=== PATIENT | female | born 1960 | race Caucasian/White ===

== ENCOUNTER 2022-02-15 19:32 | Inpatient (IN) | payer SELFPAY ==
[2022-02-15 19:49] VITALS: BMI 25.7
[2022-02-15] MEDS ORDERED: Senokot S 8.6-50 MG TAB PO PRN (21:08)
[2022-02-15] MEDS ORDERED: Acetaminophen 325 MG TAB PO PRN (21:08)
[2022-02-15] MEDS ORDERED: Ondansetron PF 4 MG/2 ML Vial IVP PRN (21:08)
[2022-02-15] MEDS ORDERED: HYDROcodone/Acetaminophen 5/325 mg Tablet PO PRN (21:08)
[2022-02-16 05:29] LABS: #Eosinphils 0.3 thou/uL (0.0-0.7); #Lymphocytes 2.7 thou/uL (1.20-3.40); #Neutrophils 4.5 thou/uL (1.40-6.50); %Basophils 0.3 % (0.0-1.0); %Eosinophils 3.6 % (0.0-10.0); %Lymphocytes 31.7 % (21.0-51.0); %Monocytes 11.6 % (0.0-10.0); %Neutrophils 52.8 % (42.0-75.0); Hemoglobin 12.4 g/dL (12.0-16.0); Mean Corpuscular HGB CONC 32.2 g/dL (32.0-36.0); Mean Corpuscular Hemoglobin 29.9 pg (27.0-31.0); Mean Corpuscular Volume 92.8 fL (78.0-98.0); Mean Platelet Volume 6.2 fL (7.4-10.4); Platelet Count 336 thou/uL (130-400); RBC Distribution Width 13.1 % (11.5-14.5); Red Blood Cell (RBC) Count 4.16 mill/uL (4.20-5.40); White Blood Cell (WBC) Count 8.5 thou/uL (4.8-10.8)
[2022-02-16 05:59] LABS: Anion Gap 14 mmol/L (10-20); BUN (Urea Nitrogen) 10 mg/dL (9.8-20.1); Calc. Creatinine Clearance 83 mL/min (70-130); Calcium 9.5 mg/dL (7.8-10.44); Carbon Dioxide 29 mmol/L (23-31); Chloride 97 mmol/L (98-107); Glucose 99 mg/dL (80-115); Potassium 3.2 mmol/L (3.5-5.1); Sodium 137 mmol/L (136-145)
[2022-02-16] MEDS: glipiZIDE 10 MG TAB PO SCH (09:33)
[2022-02-16] MEDS: Carvedilol 25 MG TAB PO SCH ×2 (09:33→18:37)
[2022-02-16] MEDS: Aspirin 81 mg Enteric Coated Tablet PO SCH (09:33)
[2022-02-16] MEDS: Lisinopril/Hydrochlorothiazide 20/25 mg Tablet PO SCH (09:33)
[2022-02-16] MEDS ORDERED: Potassium Chloride 20 MEQ TAB PO SCH (18:15)
[2022-02-16] MEDS: Atorvastatin Calcium 40 MG TAB PO SCH (20:53)
[2022-02-17 06:11] LABS: Anion Gap 14 mmol/L (10-20); BUN (Urea Nitrogen) 9 mg/dL (9.8-20.1); Calc. Creatinine Clearance 88 mL/min (70-130); Calcium 9.3 mg/dL (7.8-10.44); Carbon Dioxide 28 mmol/L (23-31); Chloride 98 mmol/L (98-107); Glucose 121 mg/dL (80-115); Potassium 3.7 mmol/L (3.5-5.1); Sodium 136 mmol/L (136-145)
[2022-02-17] MEDS ORDERED: Carvedilol 6.25 MG TAB PO SCH ×2 (09:00→10:00)
[2022-02-17] MEDS: Lisinopril/Hydrochlorothiazide 20/25 mg Tablet PO SCH (09:58)
[2022-02-17] MEDS: Carvedilol 25 MG TAB PO SCH (09:58)
[2022-02-17] MEDS ORDERED: EPINEPHrine 1 MG/10 ML Abboject SYRINGE ONE (10:15)
[2022-02-17] MEDS ORDERED: Midazolam HCl 2 mg/2 ml Vial ONE (10:26)
[2022-02-17] MEDS ORDERED: fentaNYL Citrate/PF 100 MCG/2 ML SYRINGE ONE (10:27)
[2022-02-17] MEDS ORDERED: PROPOFOL 200 MG/20 ML VIAL ONE (10:33)
[2022-02-17] MEDS ORDERED: Rocuronium Bromide 10 MG/ML (10ML VIAL) ONE (10:33)
[2022-02-17] MEDS ORDERED: Dexamethasone 20 MG/5 ML VIAL ONE (10:33)
[2022-02-17] MEDS ORDERED: Ondansetron PF 4 MG/2 ML Vial ONE (10:33)
[2022-02-17] MEDS ORDERED: Glycopyrrolate 0.2 MG/ML 5 ML SYRINGE ONE (10:33)
[2022-02-17] MEDS ORDERED: PHENYLEPHRINE-NS 100 MCG/ML 10 ML SYRINGE ONE (10:33)
[2022-02-17] MEDS ORDERED: ePHEDrine 50 MG/ML VIAL ONE (10:33)
[2022-02-17] MEDS ORDERED: Promethazine HCl 25 MG/ML VIAL IM PRN (11:57)
[2022-02-17] MEDS ORDERED: Ondansetron HCl/PF 4 MG/2 ML Vial IVP PRN (11:57)
[2022-02-17] MEDS ORDERED: Promethazine HCl 25 MG/ML VIAL IVPB PRN (11:57)
[2022-02-17] MEDS ORDERED: SUGAMMADEX SODIUM 200 MG/2 ML VIAL ONE (12:00)
[2022-02-17] MEDS ORDERED: Promethazine HCl 25 MG/ML VIAL ONE (12:09)
[2022-02-17] MEDS: glipiZIDE 10 MG TAB PO SCH (14:39)
[2022-02-17] MEDS: Carvedilol 6.25 MG TAB PO SCH (18:29)
[2022-02-17] MEDS ORDERED: Guaifenesin DM 100-10/5 ML UDCUP PO PRN (20:49)
[2022-02-17] MEDS: Atorvastatin Calcium 40 MG TAB PO SCH (21:51)
[2022-02-18] MEDS: glipiZIDE 10 MG TAB PO SCH (09:17)
[2022-02-18] MEDS: Carvedilol 6.25 MG TAB PO SCH ×2 (09:18→16:57)
[2022-02-18] MEDS: Aspirin 81 mg Enteric Coated Tablet PO SCH (09:20)
[2022-02-18 09:34] LABS: #Lymphocytes 2.3 thou/uL (1.20-3.40); #Monocytes 1.1 thou/uL (0.11-0.59); #Neutrophils 15.1 thou/uL (1.40-6.50); %Eosinophils 0.2 % (0.0-10.0); %Lymphocytes 12.5 % (21.0-51.0); %Monocytes 5.8 % (0.0-10.0); %Neutrophils 81.4 % (42.0-75.0); Hemoglobin 12.3 g/dL (12.0-16.0); Mean Corpuscular HGB CONC 32.1 g/dL (32.0-36.0); Mean Corpuscular Hemoglobin 29.9 pg (27.0-31.0); Mean Corpuscular Volume 93.4 fL (78.0-98.0); Mean Platelet Volume 6.4 fL (7.4-10.4); Platelet Count 388 thou/uL (130-400); RBC Distribution Width 12.9 % (11.5-14.5); Red Blood Cell (RBC) Count 4.11 mill/uL (4.20-5.40); White Blood Cell (WBC) Count 18.6 thou/uL (4.8-10.8)
[2022-02-18 09:47] LABS: Anion Gap 14 mmol/L (10-20); BUN (Urea Nitrogen) 11 mg/dL (9.8-20.1); Calc. Creatinine Clearance 88 mL/min (70-130); Calcium 9.4 mg/dL (7.8-10.44); Carbon Dioxide 27 mmol/L (23-31); Chloride 98 mmol/L (98-107); Glucose 133 mg/dL (80-115); Potassium 3.8 mmol/L (3.5-5.1); Sodium 135 mmol/L (136-145)
[2022-02-18] MEDS: Atorvastatin Calcium 40 MG TAB PO SCH (20:48)
[2022-02-19 05:23] LABS: #Eosinphils 0.1 thou/uL (0.0-0.7); #Lymphocytes 2.6 thou/uL (1.20-3.40); #Monocytes 0.7 thou/uL (0.11-0.59); #Neutrophils 7.4 thou/uL (1.40-6.50); %Basophils 0.1 % (0.0-1.0); %Lymphocytes 24.1 % (21.0-51.0); %Monocytes 6.7 % (0.0-10.0); %Neutrophils 68.1 % (42.0-75.0); Hemoglobin 11.4 g/dL (12.0-16.0); Mean Corpuscular HGB CONC 32.9 g/dL (32.0-36.0); Mean Corpuscular Hemoglobin 30.7 pg (27.0-31.0); Mean Corpuscular Volume 93.4 fL (78.0-98.0); Mean Platelet Volume 5.9 fL (7.4-10.4); Platelet Count 345 thou/uL (130-400); RBC Distribution Width 13.1 % (11.5-14.5); White Blood Cell (WBC) Count 10.9 thou/uL (4.8-10.8)
[2022-02-19] MEDS: glipiZIDE 10 MG TAB PO SCH (10:18)
[2022-02-19] MEDS: Aspirin 81 mg Enteric Coated Tablet PO SCH (10:18)
[2022-02-19] MEDS: Carvedilol 6.25 MG TAB PO SCH (10:18)
[2022-02-19 12:06] VITALS: BP 121/75; TEMP 98.6
[2022-02-24 18:37] LABS: Fungus Stain Final report (.)
== END 2022-02-19 14:31 | disposition home or self-care (01) | DRG 180 ==
LOC: 2NO 19:32 → T4-A 19:37 → NEURO 22:50
PROVIDERS: ADMIT Internal Medicine; ATTEND Family Medicine
PROC: 07D78ZX Extraction of Thorax Lymphatic, Via Natural or Artificial Opening Endoscopic, Diagnostic (ICD-10-PCS; principal; 2022-02-17)
PROC: 0BDB8ZX Extraction of Left Lower Lobe Bronchus, Via Natural or Artificial Opening Endoscopic, Diagnostic (ICD-10-PCS; 2022-02-17)
PROC: 0BD88ZX Extraction of Left Upper Lobe Bronchus, Via Natural or Artificial Opening Endoscopic, Diagnostic (ICD-10-PCS; 2022-02-17)
DX: C34.02 Malignant neoplasm of left main bronchus (principal); J18.8 Other pneumonia, unspecified organism; C79.72 Secondary malignant neoplasm of left adrenal gland; C79.71 Secondary malignant neoplasm of right adrenal gland; R04.2 Hemoptysis; Z20.822 Contact with and (suspected) exposure to COVID-19; E11.9 Type 2 diabetes mellitus without complications; Z96.89 Presence of other specified functional implants; T81.82XA Emphysema (subcutaneous) resulting from a procedure, initial encounter; Y84.8 Other medical procedures as the cause of abnormal reaction of the patient, or of later complication, without mention of misadventure at the time of the procedure; Z79.899 Other long term (current) drug therapy; Z79.82 Long term (current) use of aspirin; Z79.84 Long term (current) use of oral hypoglycemic drugs; Z85.3 Personal history of malignant neoplasm of breast; Z90.11 Acquired absence of right breast and nipple; Z87.891 Personal history of nicotine dependence; Z80.0 Family history of malignant neoplasm of digestive organs; Z83.6 Family history of other diseases of the respiratory system
CPT/HCPCS: 36415; 36416; 71045; 80048; 85025; 87070; 87102; 87205; 87206; 88112; 88173; 88305; J0171; J1100; J2250; J2405; J2550; J2704; J3490; U0003; U0005

== ENCOUNTER 2022-03-08 11:00 | Outpatient (CLI) | payer OTHER | END 2022-03-08 11:01 | disposition home or self-care (01) | LOC: PET 11:00 | PROVIDERS: ATTEND Internal Medicine Hematology & Oncology | DX: C34.12 Malignant neoplasm of upper lobe, left bronchus or lung (principal); C79.51 Secondary malignant neoplasm of bone; E27.8 Other specified disorders of adrenal gland | CPT/HCPCS: 78815; A9552 ==

== ENCOUNTER 2022-03-08 12:44 | Inpatient (IN) | payer SELFPAY ==
[~2022-03-08 12:44] MED LIST: Iopamidol-370 76% 500 ML 1 ML ONE
[2022-03-08 15:29] LABS: #Basophils 0.1 thou/uL (0.0-0.2); #Eosinphils 0.3 thou/uL (0.0-0.7); #Lymphocytes 2.6 thou/uL (1.20-3.40); #Neutrophils 7.4 thou/uL (1.40-6.50); %Basophils 0.7 % (0.0-1.0); %Lymphocytes 22.9 % (21.0-51.0); %Monocytes 8.7 % (0.0-10.0); %Neutrophils 64.7 % (42.0-75.0); Mean Corpuscular HGB CONC 33.6 g/dL (32.0-36.0); Mean Corpuscular Hemoglobin 30.5 pg (27.0-31.0); Mean Corpuscular Volume 90.9 fL (78.0-98.0); Mean Platelet Volume 5.7 fL (7.4-10.4); Platelet Count 463 thou/uL (130-400); RBC Distribution Width 13.2 % (11.5-14.5); Red Blood Cell (RBC) Count 3.62 mill/uL (4.20-5.40); White Blood Cell (WBC) Count 11.4 thou/uL (4.8-10.8)
[2022-03-08 15:39] LABS: INR-International Normal Ratio 1.1; Prothrombin Time 14.7 sec (12.0-14.7)
[2022-03-08 15:40] LABS: PTT 37.5 sec (22.9-36.1)
[2022-03-08 15:55] LABS: ALT (SGPT) 23 U/L (8-55); AST (SGOT) 21 U/L (5-34); Albumin 3.4 g/dL (3.4-4.8); Alkaline Phosphatase 137 U/L (40-110); Anion Gap 16 mmol/L (10-20); BUN (Urea Nitrogen) 9 mg/dL (9.8-20.1); Bilirubin, Total 0.7 mg/dL (0.2-1.2); Calc. Creatinine Clearance 0 mL/min (70-130); Calcium 9.5 mg/dL (7.8-10.44); Carbon Dioxide 27 mmol/L (23-31); Chloride 101 mmol/L (98-107); Globulin 3.8 g/dL (2.4-3.5); Glucose 77 mg/dL (80-115); Potassium 3.8 mmol/L (3.5-5.1); Protein, Total 7.2 g/dL (5.8-8.1); Sodium 140 mmol/L (136-145)
[2022-03-08] MEDS ORDERED: Heparin 10,000 UNITS/ 10 ML VIAL ONE (20:25)
[2022-03-08] MEDS ORDERED: Heparin 25,000 units/D5W 500 ML ONE (20:25)
[2022-03-08] MEDS ORDERED: Acetaminophen 325 MG TAB PO PRN (21:00)
[2022-03-08] MEDS ORDERED: Ondansetron PF 4 MG/2 ML Vial IVP PRN (21:00)
[2022-03-08] MEDS ORDERED: Guaifenesin DM 100-10/5 ML UDCUP PO PRN (21:00)
[2022-03-08] MEDS ORDERED: Benzonatate 100 MG CAP PO PRN (21:05)
[2022-03-08] MEDS ORDERED: Morphine 2 MG/ML VIAL SLOW IVP PRN (21:05)
[2022-03-08] MEDS ORDERED: Melatonin 3 MG TAB PO PRN (21:05)
[2022-03-08] MEDS ORDERED: Dextrose 5% in Water 1,000 ML IV PRN (21:11)
[2022-03-08] MEDS ORDERED: HumaLOG 300 UNITS/3 ML VIAL SC PRN ×2 (21:11)
[2022-03-08] MEDS ORDERED: Dextrose 50% Abboject 50 ML SYRINGE SLOW IVP PRN (21:11)
[2022-03-08] MEDS ORDERED: Heparin 10,000 UNITS/ 10 ML VIAL SLOW IVP SCH (21:15)
[2022-03-08] MEDS ORDERED: Heparin 25,000 units/D5W 500 ML IVPB SCH (21:15)
[2022-03-08 21:36] LABS: Hemoglobin 10.7 g/dL (12.0-16.0); Platelet Count 462 thou/uL (130-400)
[2022-03-08] MEDS ORDERED: Pantoprazole 40 MG VIAL IVP SCH (22:00)
[2022-03-08] MEDS ORDERED: cefTRIAXone\\ROCEPHIN 2 GM VIAL ONE (22:22)
[2022-03-08] MEDS ORDERED: Pantoprazole 40 MG VIAL ONE (22:24)
[2022-03-08] MEDS: Sodium Chloride 0.9% 1,000 ML IV SCH (22:38)
[2022-03-08] MEDS: cefTRIAXone\\ROCEPHIN 2 GM in Sodium Chloride 0.9% 100 ML IVPB SCH (22:41)
[2022-03-08] MEDS ORDERED: Azithromycin 500 MG in Sodium Chloride 0.9% 250 ML 250 ML IVPB SCH (23:00)
[2022-03-09 01:28] VITALS: BMI 26.0
[2022-03-09] MEDS ORDERED: Azithromycin 500 MG in Sodium Chloride 0.9% 250 ML 250 ML IVPB SCH (02:00)
[2022-03-09 02:03] LABS: SARS-CoV-2 NAA Rapid Test Not Detected (NotDetected)
[2022-03-09 04:10] LABS: PTT Greater than 250.0 sec (22.9-36.1)
[2022-03-09 06:24] LABS: #Basophils 0.1 thou/uL (0.0-0.2); #Eosinphils 0.4 thou/uL (0.0-0.7); #Lymphocytes 3.1 thou/uL (1.20-3.40); #Monocytes 1.2 thou/uL (0.11-0.59); #Neutrophils 6.2 thou/uL (1.40-6.50); %Basophils 0.5 % (0.0-1.0); %Eosinophils 3.5 % (0.0-10.0); %Lymphocytes 28.2 % (21.0-51.0); %Monocytes 10.9 % (0.0-10.0); Mean Corpuscular HGB CONC 32.3 g/dL (32.0-36.0); Mean Corpuscular Hemoglobin 29.9 pg (27.0-31.0); Mean Corpuscular Volume 92.6 fL (78.0-98.0); Mean Platelet Volume 5.8 fL (7.4-10.4); Platelet Count 451 thou/uL (130-400); RBC Distribution Width 13.1 % (11.5-14.5); Red Blood Cell (RBC) Count 3.33 mill/uL (4.20-5.40); White Blood Cell (WBC) Count 10.9 thou/uL (4.8-10.8)
[2022-03-09 06:33] LABS: Hemoglobin A1c 6.3 % (4.0-6.0)
[2022-03-09 06:37] LABS: PTT 139.2 sec (22.9-36.1)
[2022-03-09 06:44] LABS: ALT (SGPT) 19 U/L (8-55); AST (SGOT) 21 U/L (5-34); Albumin 2.8 g/dL (3.4-4.8); Alkaline Phosphatase 115 U/L (40-110); Anion Gap 12 mmol/L (10-20); BUN (Urea Nitrogen) 8 mg/dL (9.8-20.1); Bilirubin, Total 0.4 mg/dL (0.2-1.2); Calc. Creatinine Clearance 109 mL/min (70-130); Calcium 8.4 mg/dL (7.8-10.44); Carbon Dioxide 25 mmol/L (23-31); Chloride 106 mmol/L (98-107); Globulin 3.2 g/dL (2.4-3.5); Glucose 72 mg/dL (80-115); Potassium 3.1 mmol/L (3.5-5.1); Sodium 140 mmol/L (136-145)
[2022-03-09] MEDS ORDERED: Electrolyte Replacement Protocol 1 EACH FS SCH (09:00)
[2022-03-09] MEDS: Pantoprazole 40 MG VIAL IVP SCH (09:32)
[2022-03-09] MEDS ORDERED: Potassium Chloride 20 MEQ TAB PO SCH (10:00)
[2022-03-09 10:29] LABS: Magnesium 1.9 mg/dL (1.6-2.6)
[2022-03-09] MEDS ORDERED: Magnesium 2 GM/50 ML(in water) 2 GM in Premix Bag 1 BAG IVPB SCH (13:00)
[2022-03-09] MEDS: Sodium Chloride 0.9% 1,000 ML IV SCH (18:21)
[2022-03-09] MEDS ORDERED: Enoxaparin Sodium 80 MG/0.8 ML SYRINGE SC SCH (21:00)
[2022-03-09] MEDS: cefTRIAXone\\ROCEPHIN 2 GM in Sodium Chloride 0.9% 100 ML IVPB SCH (21:55)
[2022-03-10 04:08] LABS: Mean Corpuscular HGB CONC 32.5 g/dL (32.0-36.0); Mean Corpuscular Hemoglobin 30.2 pg (27.0-31.0); Mean Corpuscular Volume 92.9 fL (78.0-98.0); Mean Platelet Volume 5.9 fL (7.4-10.4); Platelet Count 435 thou/uL (130-400); RBC Distribution Width 13.1 % (11.5-14.5); Red Blood Cell (RBC) Count 3.32 mill/uL (4.20-5.40)
[2022-03-10 04:21] LABS: Anion Gap 15 mmol/L (10-20); BUN (Urea Nitrogen) 5 mg/dL (9.8-20.1); Calc. Creatinine Clearance 112 mL/min (70-130); Calcium 8.6 mg/dL (7.8-10.44); Carbon Dioxide 22 mmol/L (23-31); Chloride 105 mmol/L (98-107); Glucose 103 mg/dL (80-115); Potassium 3.6 mmol/L (3.5-5.1); Sodium 138 mmol/L (136-145)
[2022-03-10] MEDS ORDERED: Carvedilol 6.25 MG TAB PO SCH (05:45)
[2022-03-10] MEDS ORDERED: fentaNYL Citrate/PF 100 MCG/2 ML SYRINGE ONE (06:50)
[2022-03-10] MEDS ORDERED: Bupivacaine PF 0.5% 30 ML VIAL ONE (07:22)
[2022-03-10] MEDS ORDERED: EPINEPHrine 1 MG/ML AMP ONE (07:22)
[2022-03-10] MEDS ORDERED: Lidocaine 1% PF 5 ML VIAL ONE (07:53)
[2022-03-10] MEDS ORDERED: PROPOFOL 200 MG/20 ML VIAL ONE (07:53)
[2022-03-10] MEDS ORDERED: Ondansetron PF 4 MG/2 ML Vial ONE (07:53)
[2022-03-10] MEDS ORDERED: Glycopyrrolate 0.2 MG/ML 5 ML SYRINGE ONE (07:53)
[2022-03-10] MEDS ORDERED: Rocuronium Bromide 10 MG/ML (10ML VIAL) ONE (07:53)
[2022-03-10] MEDS ORDERED: Fentanyl 100 MCG/2 ML VIAL SLOW IVP PRN (10:49)
[2022-03-10] MEDS: Pantoprazole 40 MG VIAL IVP SCH (12:57)
[2022-03-10] MEDS: HYDROcodone/Acetaminophen 5/325 mg Tablet PO PRN ×2 (16:09→22:43)
[2022-03-10] MEDS: Morphine 2 MG/ML VIAL SLOW IVP PRN (19:12)
[2022-03-10] MEDS: cefTRIAXone\\ROCEPHIN 2 GM in Sodium Chloride 0.9% 100 ML IVPB SCH (21:57)
[2022-03-10] MEDS: Enoxaparin Sodium 30 MG/0.3 ML SYRINGE SC SCH (21:57)
[2022-03-11] MEDS: HYDROcodone/Acetaminophen 5/325 mg Tablet PO PRN ×3 (09:17→20:31)
[2022-03-11] MEDS: Enoxaparin Sodium 30 MG/0.3 ML SYRINGE SC SCH ×2 (09:18→20:29)
[2022-03-11] MEDS: Pantoprazole 40 MG VIAL IVP SCH (09:18)
[2022-03-11] MEDS ORDERED: Docusate 100 MG CAP PO PRN (11:53)
[2022-03-11] MEDS ORDERED: Polyethylene Glycol 3350 17 GM Packet PO PRN (11:53)
[2022-03-11] MEDS: Morphine 2 MG/ML VIAL SLOW IVP PRN (18:10)
[2022-03-11] MEDS: cefTRIAXone\\ROCEPHIN 2 GM in Sodium Chloride 0.9% 100 ML IVPB SCH (20:29)
[2022-03-12 05:02] LABS: Anion Gap 14 mmol/L (10-20); BUN (Urea Nitrogen) 9 mg/dL (9.8-20.1); Calc. Creatinine Clearance 112 mL/min (70-130); Calcium 8.5 mg/dL (7.8-10.44); Carbon Dioxide 24 mmol/L (23-31); Chloride 103 mmol/L (98-107); Glucose 111 mg/dL (80-115); Sodium 138 mmol/L (136-145)
[2022-03-12 05:11] LABS: Hemoglobin 9.5 g/dL (12.0-16.0); Mean Corpuscular HGB CONC 32.9 g/dL (32.0-36.0); Mean Corpuscular Hemoglobin 30.4 pg (27.0-31.0); Mean Corpuscular Volume 92.5 fL (78.0-98.0); Mean Platelet Volume 6.1 fL (7.4-10.4); Platelet Count 495 thou/uL (130-400); RBC Distribution Width 13.2 % (11.5-14.5); Red Blood Cell (RBC) Count 3.12 mill/uL (4.20-5.40); White Blood Cell (WBC) Count 12.4 thou/uL (4.8-10.8)
[2022-03-12] MEDS ORDERED: Potassium Chloride 20 MEQ TAB PO SCH ×2 (09:00→12:00)
[2022-03-12] MEDS ORDERED: Enoxaparin Sodium 80 MG/0.8 ML SYRINGE SC SCH (09:00)
[2022-03-12] MEDS: Potassium Chloride 20 MEQ in Premix Bag 1 BAG IVPB SCH ×2 (10:19→13:45)
[2022-03-12] MEDS: Pantoprazole 40 MG VIAL IVP SCH (10:19)
[2022-03-12 16:08] VITALS: BP 130/82; TEMP 98
== END 2022-03-12 17:30 | disposition home or self-care (01) | DRG 166 ==
LOC: ERS 12:44 → ERHOLD 20:38 → IMCU/EMU 03-09 01:10 → 2NO 03-10 17:50
PROVIDERS: ADMIT Internal Medicine; ATTEND Internal Medicine
PROC: 07B74ZX Excision of Thorax Lymphatic, Percutaneous Endoscopic Approach, Diagnostic (ICD-10-PCS; principal; 2022-03-11)
PROC: 07B Lymphatic and Hemic Systems, Excision (ICD-10-PCS; 2022-03-11)
DX: C34.92 Malignant neoplasm of unspecified part of left bronchus or lung (principal); I26.99 Other pulmonary embolism without acute cor pulmonale; J18.9 Pneumonia, unspecified organism; C79.51 Secondary malignant neoplasm of bone; C79.70 Secondary malignant neoplasm of unspecified adrenal gland; J98.11 Atelectasis; C78.1 Secondary malignant neoplasm of mediastinum; I31.3 Pericardial effusion (noninflammatory); J90 Pleural effusion, not elsewhere classified; E78.5 Hyperlipidemia, unspecified; K21.9 Gastro-esophageal reflux disease without esophagitis; I10 Essential (primary) hypertension; J98.2 Interstitial emphysema; R42 Dizziness and giddiness; E11.9 Type 2 diabetes mellitus without complications; Z20.822 Contact with and (suspected) exposure to COVID-19; Z79.82 Long term (current) use of aspirin; Z79.84 Long term (current) use of oral hypoglycemic drugs; Z79.899 Other long term (current) drug therapy; Z98.51 Tubal ligation status; Z90.721 Acquired absence of ovaries, unilateral; Z90.11 Acquired absence of right breast and nipple; Z90.49 Acquired absence of other specified parts of digestive tract; Z98.890 Other specified postprocedural states; Z87.891 Personal history of nicotine dependence; Z80.0 Family history of malignant neoplasm of digestive organs; Z84.89 Family history of other specified conditions; Z85.3 Personal history of malignant neoplasm of breast; Z92.21 Personal history of antineoplastic chemotherapy
CPT/HCPCS: 36415; 36416; 71045; 71275; 80048; 80053; 82306; 82533; 83036; 83735; 83880; 84443; 84484; 85025; 85027; 85610; 85730; 86850; 86900; 86901; 88305; 88331; 88334; 88341; 88342; 93005; 93306; C1776; C9113; J0171; J0456; J0696; J1644; J1650; J1815; J2270; J2405; J2704; J3475; J3480; J3490; J7050; Q9967; S0020; U0002

== ENCOUNTER 2022-04-09 16:43 | Emergency (ER) | payer SELFPAY ==
[2022-04-09] MEDS ORDERED: Morphine 4 MG/ML VIAL ONE (18:18)
[2022-04-09] MEDS ORDERED: Ondansetron PF 4 MG/2 ML Vial ONE (18:18)
[2022-04-09 18:48] LABS: #Basophils 0.1 thou/uL (0.0-0.2); #Eosinphils 0.2 thou/uL (0.0-0.7); #Lymphocytes 2.6 thou/uL (1.20-3.40); #Monocytes 1.3 thou/uL (0.11-0.59); #Neutrophils 7.5 thou/uL (1.40-6.50); %Basophils 0.5 % (0.0-1.0); %Eosinophils 1.5 % (0.0-10.0); %Lymphocytes 22.7 % (21.0-51.0); %Monocytes 10.9 % (0.0-10.0); %Neutrophils 64.4 % (42.0-75.0); Hemoglobin 9.3 g/dL (12.0-16.0); Mean Corpuscular HGB CONC 31.4 g/dL (32.0-36.0); Mean Corpuscular Hemoglobin 28.8 pg (27.0-31.0); Mean Platelet Volume 6.2 fL (7.4-10.4); Platelet Count 574 thou/uL (130-400); Red Blood Cell (RBC) Count 3.22 mill/uL (4.20-5.40); White Blood Cell (WBC) Count 11.6 thou/uL (4.8-10.8)
[2022-04-09 19:02] LABS: Calcium 9.3 mg/dL (7.8-10.44); Chloride 101 mmol/L (98-107); Potassium 3.9 mmol/L (3.5-5.1); Sodium 136 mmol/L (136-145)
[2022-04-09 19:20] LABS: ALT (SGPT) 24 U/L (8-55); AST (SGOT) 27 U/L (5-34); Albumin 3.2 g/dL (3.4-4.8); Alkaline Phosphatase 164 U/L (40-110); Anion Gap 19 mmol/L (10-20); BUN (Urea Nitrogen) 10 mg/dL (9.8-20.1); Bilirubin, Total 0.5 mg/dL (0.2-1.2); Calc. Creatinine Clearance 0 mL/min (70-130); Carbon Dioxide 20 mmol/L (23-31); Estimated GFR 99; Globulin 4.2 g/dL (2.4-3.5); Glucose 127 mg/dL (80-115); Lipase 21 U/L (8-78); Protein, Total 7.4 g/dL (5.8-8.1)
[2022-04-09 20:00] LABS: Bacteria/HPF 2+ HPF (None Seen); Bilirubin Negative (Negative); Blood, Urine 3+ (Negative); Clarity Turbid (Clear); Glucose, Urine (Dipstick) Normal (Negative); Ketone, Urine Negative (Negative); Leukocyte 25 Leu/uL (Negative); Nitrite Negative (Negative); Protein, Urine (Dipstick) 50 mg/dL (Neg-Trace); RBC/HPF 21-50 HPF (0-3); Specific Gravity, Urine 1.007 (1.002-1.036); Squamous Epithelial 0-3 HPF (0-3); Urobilinogen Normal mg/dL (Less than 2); pH, Urine 6.5 (5.0-9.0)
== END 2022-04-09 21:43 | disposition home or self-care (01) ==
LOC: ERS 17:18
DX: N12 Tubulo-interstitial nephritis, not specified as acute or chronic (principal); K63.89 Other specified diseases of intestine; C79.51 Secondary malignant neoplasm of bone; C79.89 Secondary malignant neoplasm of other specified sites; I10 Essential (primary) hypertension; E11.9 Type 2 diabetes mellitus without complications; E78.5 Hyperlipidemia, unspecified; K21.9 Gastro-esophageal reflux disease without esophagitis; Z85.118 Personal history of other malignant neoplasm of bronchus and lung
CPT/HCPCS: 36415; 74177; 80053; 81003; 81015; 83690; 85025; 93005; 94760; 96361; 96374; 96375; J2270; J2405; Q9967

== ENCOUNTER 2022-04-17 15:04 | Inpatient (IN) | payer SELFPAY, OTHER ==
[2022-04-17 15:34] LABS: #Basophils 0.1 thou/uL (0.0-0.2); #Eosinphils 0.1 thou/uL (0.0-0.7); #Lymphocytes 2.9 thou/uL (1.20-3.40); #Monocytes 0.9 thou/uL (0.11-0.59); #Neutrophils 10.7 thou/uL (1.40-6.50); %Basophils 0.7 % (0.0-1.0); %Eosinophils 0.8 % (0.0-10.0); %Lymphocytes 19.5 % (21.0-51.0); %Monocytes 6.4 % (0.0-10.0); %Neutrophils 72.8 % (42.0-75.0); Hemoglobin 10.2 g/dL (12.0-16.0); Mean Corpuscular HGB CONC 32.9 g/dL (32.0-36.0); Mean Corpuscular Hemoglobin 29.4 pg (27.0-31.0); Mean Corpuscular Volume 89.1 fL (78.0-98.0); Platelet Count 616 thou/uL (130-400); RBC Distribution Width 14.3 % (11.5-14.5); Red Blood Cell (RBC) Count 3.47 mill/uL (4.20-5.40); White Blood Cell (WBC) Count 14.7 thou/uL (4.8-10.8)
[2022-04-17 15:46] LABS: INR-International Normal Ratio 1.6
[2022-04-17 15:47] LABS: PTT 62.9 sec (22.9-36.1)
[2022-04-17 15:56] LABS: ALT (SGPT) 24 U/L (8-55); AST (SGOT) 30 U/L (5-34); Albumin 3.5 g/dL (3.4-4.8); Alkaline Phosphatase 188 U/L (40-110); Anion Gap 20 mmol/L (10-20); BUN (Urea Nitrogen) 12 mg/dL (9.8-20.1); Bilirubin, Total 0.4 mg/dL (0.2-1.2); Calc. Creatinine Clearance 0 mL/min (70-130); Calcium 9.9 mg/dL (7.8-10.44); Carbon Dioxide 22 mmol/L (23-31); Chloride 94 mmol/L (98-107); Estimated GFR 69; Globulin 5.2 g/dL (2.4-3.5); Glucose 167 mg/dL (80-115); Potassium 4.4 mmol/L (3.5-5.1); Protein, Total 8.7 g/dL (5.8-8.1); Sodium 132 mmol/L (136-145)
[2022-04-17] MEDS ORDERED: Ondansetron PF 4 MG/2 ML Vial ONE (16:08)
[2022-04-17] MEDS ORDERED: Acetaminophen 325 MG TAB PO PRN (18:27)
[2022-04-17] MEDS ORDERED: Guaifenesin DM 100-10/5 ML UDCUP PO PRN (18:27)
[2022-04-17] MEDS ORDERED: Ondansetron ODT 4 MG TAB PO PRN (18:27)
[2022-04-17] MEDS ORDERED: Ondansetron PF 4 MG/2 ML Vial IVP PRN (18:27)
[2022-04-17] MEDS ORDERED: Bisacodyl 10 MG SUPP PR PRN (18:27)
[2022-04-17] MEDS ORDERED: Bisacodyl 5 MG TAB PO PRN (18:27)
[2022-04-17] MEDS ORDERED: Acetaminophen 650 MG Suppository PR PRN (18:27)
[2022-04-17] MEDS ORDERED: HumaLOG 300 UNITS/3 ML VIAL SC PRN ×2 (19:46)
[2022-04-17] MEDS ORDERED: Dextrose 5% in Water 1,000 ML IV PRN (19:46)
[2022-04-17] MEDS ORDERED: Dextrose 50% Abboject 50 ML SYRINGE SLOW IVP PRN (19:46)
[2022-04-17] MEDS ORDERED: hydrALAZINE 20 MG/ML VIAL SLOW IVP PRN (19:48)
[2022-04-17] MEDS: Sodium Chloride 0.9% 1,000 ML IV SCH (21:06)
[2022-04-17] MEDS: Morphine 2 MG/ML VIAL SLOW IVP PRN (21:07)
[2022-04-17] MEDS: Pantoprazole 40 MG VIAL IVP SCH (21:07)
[2022-04-18 02:38] LABS: Bilirubin Negative (Negative); Blood, Urine 3+ (Negative); Clarity Clear (Clear); Glucose, Urine (Dipstick) Normal (Negative); Ketone, Urine Negative (Negative); Leukocyte Negative Leu/uL (Negative); Nitrite Negative (Negative); Protein, Urine (Dipstick) Negative (Neg-Trace); Specific Gravity, Urine 1.035 (1.002-1.036); Urobilinogen Normal mg/dL (Less than 2)
[2022-04-18 02:48] LABS: Bacteria/HPF 3+ HPF (None Seen); Squamous Epithelial 0-3 HPF (0-3); Urine Culture Reflex Yes Yes; WBC/HPF 0-3 HPF (0-3)
[2022-04-18 04:43] LABS: #Basophils 0.1 thou/uL (0.0-0.2); #Eosinphils 0.1 thou/uL (0.0-0.7); #Lymphocytes 2.9 thou/uL (1.20-3.40); #Monocytes 1.6 thou/uL (0.11-0.59); #Neutrophils 8.2 thou/uL (1.40-6.50); %Basophils 0.5 % (0.0-1.0); %Eosinophils 0.9 % (0.0-10.0); %Lymphocytes 22.6 % (21.0-51.0); Hemoglobin 9.6 g/dL (12.0-16.0); Mean Corpuscular HGB CONC 32.1 g/dL (32.0-36.0); Mean Corpuscular Hemoglobin 29.1 pg (27.0-31.0); Mean Corpuscular Volume 90.9 fL (78.0-98.0); Platelet Count 527 thou/uL (130-400); RBC Distribution Width 14.2 % (11.5-14.5); Red Blood Cell (RBC) Count 3.29 mill/uL (4.20-5.40); White Blood Cell (WBC) Count 12.9 thou/uL (4.8-10.8)
[2022-04-18 04:59] LABS: Hemoglobin A1c 5.7 % (4.0-6.0)
[2022-04-18 05:06] LABS: ALT (SGPT) 19 U/L (8-55); AST (SGOT) 28 U/L (5-34); Albumin 3.2 g/dL (3.4-4.8); Alkaline Phosphatase 162 U/L (40-110); Anion Gap 19 mmol/L (10-20); BUN (Urea Nitrogen) 10 mg/dL (9.8-20.1); Bilirubin, Total 0.4 mg/dL (0.2-1.2); Calc. Creatinine Clearance 88 mL/min (70-130); Calcium 9.5 mg/dL (7.8-10.44); Carbon Dioxide 20 mmol/L (23-31); Cardiac Risk 3.5 (Less than 4.5); Chloride 98 mmol/L (98-107); Cholesterol 141 mg/dl (< 200 Desired); Estimated GFR 100; Globulin 4.4 g/dL (2.4-3.5); Glucose 82 mg/dL (80-115); HDL Cholesterol 40 mg/dL (>60 Neg Risk); LDL Cholesterol, Calculated 77 mg/dL; Potassium 4.2 mmol/L (3.5-5.1); Protein, Total 7.6 g/dL (5.8-8.1); Sodium 133 mmol/L (136-145); Triglycerides 119 mg/dL (Less than 150)
[2022-04-18] MEDS: HYDROcodone/Acetaminophen 5/325 mg Tablet PO PRN ×2 (09:17→14:14)
[2022-04-18] MEDS ORDERED: ONDANSETRON HCL 4 MG PO PRN (13:10)
[2022-04-18] MEDS: Sodium Chloride 0.9% 1,000 ML IV SCH (14:13)
[2022-04-18] MEDS: Apixaban 2.5 MG TAB PO SCH (21:54)
[2022-04-18] MEDS: Atorvastatin Calcium 40 MG TAB PO SCH (21:54)
[2022-04-18] MEDS: Pantoprazole 40 MG VIAL IVP SCH (21:54)
[2022-04-18] MEDS: Sulfameth/Trimethoprim SS 400-80MG TAB PO SCH (21:54)
[2022-04-19] MEDS: Morphine 2 MG/ML VIAL SLOW IVP PRN ×3 (00:24→21:04)
[2022-04-19] MEDS: Sodium Chloride 0.9% 1,000 ML IV SCH (09:27)
[2022-04-19] MEDS: Ascorbic Acid 500 mg Chewable Tablet PO SCH (09:28)
[2022-04-19] MEDS: Apixaban 2.5 MG TAB PO SCH ×2 (09:28→20:55)
[2022-04-19] MEDS: Zinc Sulfate 220 MG CAP PO SCH (09:29)
[2022-04-19] MEDS: Sulfameth/Trimethoprim SS 400-80MG TAB PO SCH ×2 (09:29→20:55)
[2022-04-19] MEDS: Cholecalciferol 1,000 UNITS (25 MCG) TAB PO SCH (09:29)
[2022-04-19] MEDS: Atorvastatin Calcium 40 MG TAB PO SCH (20:54)
[2022-04-20] MEDS: Morphine 2 MG/ML VIAL SLOW IVP PRN ×3 (02:01→16:32)
[2022-04-20] MEDS: Sodium Chloride 0.9% 1,000 ML IV SCH ×2 (02:05→16:39)
[2022-04-20] MEDS: Ascorbic Acid 500 mg Chewable Tablet PO SCH (09:25)
[2022-04-20] MEDS: Sulfameth/Trimethoprim SS 400-80MG TAB PO SCH ×2 (09:25→20:48)
[2022-04-20] MEDS: Zinc Sulfate 220 MG CAP PO SCH (09:25)
[2022-04-20] MEDS: Apixaban 2.5 MG TAB PO SCH ×2 (09:25→20:48)
[2022-04-20] MEDS: Cholecalciferol 1,000 UNITS (25 MCG) TAB PO SCH (09:25)
[2022-04-20 09:52] VITALS: BMI 23.2
[2022-04-20] MEDS: HYDROcodone/Acetaminophen 5/325 mg Tablet PO PRN (20:48)
[2022-04-20] MEDS: Atorvastatin Calcium 40 MG TAB PO SCH (20:48)
[2022-04-20] MEDS ORDERED: Mirtazapine 30 MG TAB PO SCH (21:00)
[2022-04-21 07:32] LABS: #Basophils 0.1 thou/uL (0.0-0.2); #Eosinphils 0.2 thou/uL (0.0-0.7); #Lymphocytes 2.5 thou/uL (1.20-3.40); #Monocytes 1.4 thou/uL (0.11-0.59); #Neutrophils 8.1 thou/uL (1.40-6.50); %Basophils 0.4 % (0.0-1.0); %Eosinophils 1.2 % (0.0-10.0); %Lymphocytes 20.8 % (21.0-51.0); %Monocytes 11.1 % (0.0-10.0); %Neutrophils 66.4 % (42.0-75.0); Hemoglobin 7.9 g/dL (12.0-16.0); Mean Corpuscular HGB CONC 31.6 g/dL (32.0-36.0); Mean Corpuscular Hemoglobin 27.6 pg (27.0-31.0); Mean Corpuscular Volume 87.5 fL (78.0-98.0); Mean Platelet Volume 5.7 fL (7.4-10.4); Platelet Count 550 thou/uL (130-400); RBC Distribution Width 14.5 % (11.5-14.5); Red Blood Cell (RBC) Count 2.86 mill/uL (4.20-5.40); White Blood Cell (WBC) Count 12.2 thou/uL (4.8-10.8)
[2022-04-21 07:46] LABS: Anion Gap 15 mmol/L (10-20); BUN (Urea Nitrogen) 8 mg/dL (9.8-20.1); Calc. Creatinine Clearance 92 mL/min (70-130); Calcium 8.9 mg/dL (7.8-10.44); Carbon Dioxide 23 mmol/L (23-31); Chloride 101 mmol/L (98-107); Estimated GFR 100; Glucose 112 mg/dL (80-115); Potassium 3.9 mmol/L (3.5-5.1); Sodium 135 mmol/L (136-145)
[2022-04-21] MEDS: Ascorbic Acid 500 mg Chewable Tablet PO SCH (09:24)
[2022-04-21] MEDS: Apixaban 2.5 MG TAB PO SCH (09:25)
[2022-04-21] MEDS: Zinc Sulfate 220 MG CAP PO SCH (09:25)
[2022-04-21] MEDS: Cholecalciferol 1,000 UNITS (25 MCG) TAB PO SCH (09:25)
[2022-04-21] MEDS: Sulfameth/Trimethoprim SS 400-80MG TAB PO SCH (09:25)
[2022-04-21 12:53] VITALS: BP 123/67; TEMP 98.2
== END 2022-04-21 01:25 | disposition home or self-care (01) | DRG 180 ==
LOC: ERS 15:04 → 2NO 18:37
PROVIDERS: ADMIT Internal Medicine; ATTEND Internal Medicine
PROC: 8E0ZXY6 Isolation (ICD-10-PCS; principal; 2022-04-17)
DX: C34.02 Malignant neoplasm of left main bronchus (principal); U07.1 COVID-19; D68.32 Hemorrhagic disorder due to extrinsic circulating anticoagulants; C79.51 Secondary malignant neoplasm of bone; C79.72 Secondary malignant neoplasm of left adrenal gland; C79.71 Secondary malignant neoplasm of right adrenal gland; I27.82 Chronic pulmonary embolism; I10 Essential (primary) hypertension; E11.9 Type 2 diabetes mellitus without complications; E78.00 Pure hypercholesterolemia, unspecified; T45.515A Adverse effect of anticoagulants, initial encounter; R04.0 Epistaxis; Z85.3 Personal history of malignant neoplasm of breast; Z90.11 Acquired absence of right breast and nipple; Z79.899 Other long term (current) drug therapy; Z79.01 Long term (current) use of anticoagulants; Z80.0 Family history of malignant neoplasm of digestive organs; Z83.6 Family history of other diseases of the respiratory system; Z87.891 Personal history of nicotine dependence; Z79.84 Long term (current) use of oral hypoglycemic drugs
CPT/HCPCS: 36415; 36416; 71045; 71275; 80048; 80053; 80061; 81001; 83036; 85025; 85379; 85610; 85730; 86140; 86850; 86900; 86901; 87086; 93005; 93970; 96361; 96374; C9113; J2270; J2405; J7050; Q9967; U0003; U0005

== ENCOUNTER 2022-05-01 12:01 | Inpatient (IN) | payer MEDICAID ==
[2022-05-01] MEDS ORDERED: Ondansetron PF 4 MG/2 ML Vial ONE ×2 (12:54→15:52)
[2022-05-01 12:57] LABS: #Basophils 0.1 thou/uL (0.0-0.2); #Eosinphils 0.1 thou/uL (0.0-0.7); #Lymphocytes 2.9 thou/uL (1.20-3.40); #Monocytes 0.2 thou/uL (0.11-0.59); #Neutrophils 6.3 thou/uL (1.40-6.50); %Basophils 0.5 % (0.0-1.0); %Lymphocytes 30.3 % (21.0-51.0); %Monocytes 1.9 % (0.0-10.0); %Neutrophils 66.4 % (42.0-75.0); Hemoglobin 9.7 g/dL (12.0-16.0); Mean Corpuscular HGB CONC 31.8 g/dL (32.0-36.0); Mean Corpuscular Hemoglobin 27.3 pg (27.0-31.0); Mean Corpuscular Volume 85.9 fL (78.0-98.0); Mean Platelet Volume 6.1 fL (7.4-10.4); Platelet Count 467 thou/uL (130-400); RBC Distribution Width 15.1 % (11.5-14.5); Red Blood Cell (RBC) Count 3.56 mill/uL (4.20-5.40); White Blood Cell (WBC) Count 9.4 thou/uL (4.8-10.8)
[2022-05-01 13:22] LABS: ALT (SGPT) 43 U/L (8-55); AST (SGOT) 41 U/L (5-34); Albumin 3.6 g/dL (3.4-4.8); Alkaline Phosphatase 361 U/L (40-110); Anion Gap 23 mmol/L (10-20); BUN (Urea Nitrogen) 27 mg/dL (9.8-20.1); Bilirubin, Total 0.7 mg/dL (0.2-1.2); CK (CPK) 40 U/L (29-168); Calc. Creatinine Clearance 0 mL/min (70-130); Calcium 10.2 mg/dL (7.8-10.44); Carbon Dioxide 20 mmol/L (23-31); Chloride 91 mmol/L (98-107); Estimated GFR 78; Glucose 167 mg/dL (80-115); Lipase 66 U/L (8-78); Protein, Total 8.6 g/dL (5.8-8.1); Sodium 129 mmol/L (136-145)
[2022-05-01 15:24] LABS: Bilirubin Negative (Negative); Blood, Urine 3+ (Negative); Clarity Turbid (Clear); Glucose, Urine (Dipstick) 30 mg/dL (Negative); Ketone, Urine Negative (Negative); Leukocyte Negative Leu/uL (Negative); Nitrite Negative (Negative); Protein, Urine (Dipstick) 50 mg/dL (Neg-Trace); RBC/HPF Greater than 50 HPF (0-3); Specific Gravity, Urine 1.022 (1.002-1.036); Squamous Epithelial 0-3 HPF (0-3); Urobilinogen Normal mg/dL (Less than 2); WBC/HPF 0-3 HPF (0-3); pH, Urine 5.5 (5.0-9.0)
[2022-05-01 15:30] LABS: Bacteria/HPF 1+ HPF (None Seen)
[2022-05-01 15:31] LABS: Yeast-Budding Rare HPF (None Seen)
[2022-05-01] MEDS ORDERED: Ondansetron PF 4 MG/2 ML Vial IVP PRN (16:18)
[2022-05-01] MEDS ORDERED: Acetaminophen 325 MG TAB PO PRN (16:18)
[2022-05-01] MEDS ORDERED: Polyethylene Glycol 3350 17 GM Packet PO PRN (16:23)
[2022-05-01 18:52] LABS: SARS-CoV-2 NAA Rapid Test DETECTED (NotDetected)
[2022-05-01] MEDS ORDERED: Senokot 8.6 MG TAB PO SCH (21:00)
[2022-05-01] MEDS: Sodium Chloride 0.9% 1,000 ML IV SCH (21:16)
[2022-05-01] MEDS: Mirtazapine 30 MG TAB PO SCH (21:17)
[2022-05-01] MEDS: Apixaban 2.5 MG TAB PO SCH (21:18)
[2022-05-01] MEDS: Famotidine/PF 20 mg/2ml Vial SLOW IVP SCH (21:24)
[2022-05-02] MEDS: Melatonin 3 MG TAB PO PRN (00:16)
[2022-05-02 05:38] LABS: #Eosinphils 0.1 thou/uL (0.0-0.7); #Lymphocytes 1.6 thou/uL (1.20-3.40); #Monocytes 0.2 thou/uL (0.11-0.59); #Neutrophils 2.3 thou/uL (1.40-6.50); %Basophils 0.2 % (0.0-1.0); %Eosinophils 1.9 % (0.0-10.0); %Lymphocytes 38.8 % (21.0-51.0); %Monocytes 4.2 % (0.0-10.0); %Neutrophils 54.9 % (42.0-75.0); Hemoglobin 7.6 g/dL (12.0-16.0); Mean Corpuscular HGB CONC 32.7 g/dL (32.0-36.0); Mean Corpuscular Hemoglobin 27.8 pg (27.0-31.0); Mean Corpuscular Volume 84.9 fL (78.0-98.0); Mean Platelet Volume 5.7 fL (7.4-10.4); Platelet Count 323 thou/uL (130-400); Red Blood Cell (RBC) Count 2.74 mill/uL (4.20-5.40); White Blood Cell (WBC) Count 4.2 thou/uL (4.8-10.8)
[2022-05-02] MEDS: Sodium Chloride 0.9% 1,000 ML IV SCH ×3 (05:45→22:30)
[2022-05-02 05:52] LABS: Anion Gap 17 mmol/L (10-20); BUN (Urea Nitrogen) 17 mg/dL (9.8-20.1); Calc. Creatinine Clearance 0 mL/min (70-130); Calcium 8.9 mg/dL (7.8-10.44); Carbon Dioxide 19 mmol/L (23-31); Chloride 96 mmol/L (98-107); Estimated GFR 103; Glucose 63 mg/dL (80-115); Potassium 4.1 mmol/L (3.5-5.1); Sodium 128 mmol/L (136-145)
[2022-05-02] MEDS: Ondansetron ODT 4 MG TAB PO PRN ×2 (08:05→18:18)
[2022-05-02] MEDS: Apixaban 2.5 MG TAB PO SCH ×2 (08:15→21:43)
[2022-05-02] MEDS: Famotidine/PF 20 mg/2ml Vial SLOW IVP SCH ×2 (08:15→21:43)
[2022-05-02] MEDS: Benzonatate 100 MG CAP PO PRN ×2 (11:45→16:33)
[2022-05-02 14:14] VITALS: BMI 24.1
[2022-05-02] MEDS: Mirtazapine 30 MG TAB PO SCH (21:43)
[2022-05-03] MEDS: Melatonin 3 MG TAB PO PRN (00:45)
[2022-05-03] MEDS: Benzonatate 100 MG CAP PO PRN ×2 (00:45→17:12)
[2022-05-03 05:28] LABS: #Lymphocytes 1.3 thou/uL (1.20-3.40); #Monocytes 0.3 thou/uL (0.11-0.59); #Neutrophils 1.4 thou/uL (1.40-6.50); %Basophils 0.8 % (0.0-1.0); %Eosinophils 1.4 % (0.0-10.0); %Lymphocytes 42.4 % (21.0-51.0); %Monocytes 9.9 % (0.0-10.0); %Neutrophils 45.5 % (42.0-75.0); Hemoglobin 6.3 g/dL (12.0-16.0); Mean Corpuscular HGB CONC 32.2 g/dL (32.0-36.0); Mean Corpuscular Hemoglobin 27.2 pg (27.0-31.0); Mean Corpuscular Volume 84.6 fL (78.0-98.0); Mean Platelet Volume 5.7 fL (7.4-10.4); Platelet Count 217 thou/uL (130-400); RBC Distribution Width 14.9 % (11.5-14.5); Red Blood Cell (RBC) Count 2.33 mill/uL (4.20-5.40); White Blood Cell (WBC) Count 3.1 thou/uL (4.8-10.8)
[2022-05-03 05:43] LABS: ALT (SGPT) 54 U/L (8-55); AST (SGOT) 71 U/L (5-34); Albumin 2.8 g/dL (3.4-4.8); Alkaline Phosphatase 310 U/L (40-110); Anion Gap 16 mmol/L (10-20); BUN (Urea Nitrogen) 13 mg/dL (9.8-20.1); Bilirubin, Total 0.7 mg/dL (0.2-1.2); Calc. Creatinine Clearance 101 mL/min (70-130); Calcium 8.7 mg/dL (7.8-10.44); Carbon Dioxide 20 mmol/L (23-31); Chloride 97 mmol/L (98-107); Estimated GFR 102; Globulin 3.7 g/dL (2.4-3.5); Glucose 106 mg/dL (80-115); Potassium 4.1 mmol/L (3.5-5.1); Protein, Total 6.5 g/dL (5.8-8.1); Sodium 129 mmol/L (136-145)
[2022-05-03] MEDS: Pantoprazole 40 MG VIAL IVP SCH ×2 (08:48→21:40)
[2022-05-03] MEDS: Sodium Chloride 0.9% 1,000 ML IV SCH ×2 (08:48→17:13)
[2022-05-03] MEDS: Mirtazapine 30 MG TAB PO SCH (21:40)
[2022-05-04] MEDS: Sodium Chloride 0.9% 1,000 ML IV SCH (02:34)
[2022-05-04 05:52] LABS: #Lymphocytes 1.5 thou/uL (1.20-3.40); #Monocytes 0.4 thou/uL (0.11-0.59); #Neutrophils 1.4 thou/uL (1.40-6.50); %Basophils 0.4 % (0.0-1.0); %Eosinophils 0.4 % (0.0-10.0); %Lymphocytes 44.9 % (21.0-51.0); %Monocytes 11.7 % (0.0-10.0); %Neutrophils 42.6 % (42.0-75.0); Hemoglobin 6.9 g/dL (12.0-16.0); Mean Corpuscular HGB CONC 32.5 g/dL (32.0-36.0); Mean Corpuscular Hemoglobin 27.6 pg (27.0-31.0); Mean Corpuscular Volume 84.9 fL (78.0-98.0); Mean Platelet Volume 6.1 fL (7.4-10.4); Platelet Count 153 thou/uL (130-400); RBC Distribution Width 14.6 % (11.5-14.5); Red Blood Cell (RBC) Count 2.49 mill/uL (4.20-5.40); White Blood Cell (WBC) Count 3.4 thou/uL (4.8-10.8)
[2022-05-04 06:22] LABS: Anion Gap 17 mmol/L (10-20); BUN (Urea Nitrogen) 9 mg/dL (9.8-20.1); Calc. Creatinine Clearance 116 mL/min (70-130); Calcium 8.5 mg/dL (7.8-10.44); Carbon Dioxide 20 mmol/L (23-31); Chloride 94 mmol/L (98-107); Estimated GFR 105; Glucose 123 mg/dL (80-115); Potassium 3.7 mmol/L (3.5-5.1); Sodium 127 mmol/L (136-145)
[2022-05-04] MEDS: Lactated Ringer's 1,000 ML IV SCH ×3 (09:38→22:41)
[2022-05-04] MEDS: Sodium Chloride 1 GM TAB PO SCH ×4 (09:38→20:46)
[2022-05-04] MEDS: Pantoprazole 40 MG VIAL IVP SCH ×2 (09:38→20:46)
[2022-05-04] MEDS: Benzonatate 100 MG CAP PO PRN (17:52)
[2022-05-04] MEDS: Atorvastatin Calcium 40 MG TAB PO SCH (20:46)
[2022-05-04] MEDS: Mirtazapine 30 MG TAB PO SCH (20:46)
[2022-05-05] MEDS: Melatonin 3 MG TAB PO PRN ×2 (01:29→21:16)
[2022-05-05] MEDS: Lactated Ringer's 1,000 ML IV SCH ×3 (06:15→12:48)
[2022-05-05 07:04] LABS: Anion Gap 16 mmol/L (10-20); BUN (Urea Nitrogen) 6 mg/dL (9.8-20.1); Calc. Creatinine Clearance 128 mL/min (70-130); Calcium 8.5 mg/dL (7.8-10.44); Carbon Dioxide 22 mmol/L (23-31); Chloride 94 mmol/L (98-107); Estimated GFR 108; Glucose 104 mg/dL (80-115); Magnesium 1.2 mg/dL (1.6-2.6); Potassium 3.4 mmol/L (3.5-5.1); Sodium 129 mmol/L (136-145)
[2022-05-05 07:27] LABS: Band 1 % (5-11); Hemoglobin 8.4 g/dL (12.0-16.0); Hypochromia SLIGHT = 6-15 cells (100X) (0-5/hpf); Lymphocytes 48 % (21-51); MDiff Complete? YES; Mean Corpuscular HGB CONC 33.1 g/dL (32.0-36.0); Mean Corpuscular Hemoglobin 28.6 pg (27.0-31.0); Mean Corpuscular Volume 86.3 fL (78.0-98.0); Mean Platelet Volume 6.3 fL (7.4-10.4); Monocytes 12 % (0-10); Neutrophil 39 % (42-75); Platelet Count 114 thou/uL (130-400); Platelet Morphology Comment Appears Decreased; Polychromasia SLIGHT = 2-3 cells (100X) (0-2/hpf); RBC Distribution Width 14.2 % (11.5-14.5); Red Blood Cell (RBC) Count 2.95 mill/uL (4.20-5.40); White Blood Cell (WBC) Count 3.2 thou/uL (4.8-10.8)
[2022-05-05] MEDS: Sodium Chloride 1 GM TAB PO SCH ×5 (08:24→21:16)
[2022-05-05] MEDS: Pantoprazole 40 MG VIAL IVP SCH ×2 (08:25→21:16)
[2022-05-05] MEDS ORDERED: Magnesium Sulfate In Water 4 GM in Premix Bag 1 BAG IVPB SCH (08:45)
[2022-05-05] MEDS: Potassium Chloride 20 MEQ TAB PO SCH ×2 (11:19→17:17)
[2022-05-05] MEDS: Benzonatate 100 MG CAP PO PRN (19:37)
[2022-05-05] MEDS: Mirtazapine 30 MG TAB PO SCH (21:16)
[2022-05-05] MEDS: Atorvastatin Calcium 40 MG TAB PO SCH (21:16)
[2022-05-05 21:33] LABS: Magnesium 1.9 mg/dL (1.6-2.6); Potassium 4.3 mmol/L (3.5-5.1)
[2022-05-06] MEDS: Lactated Ringer's 1,000 ML IV SCH ×2 (06:03→16:38)
[2022-05-06 06:14] LABS: Anion Gap 12 mmol/L (10-20); BUN (Urea Nitrogen) 7 mg/dL (9.8-20.1); Calc. Creatinine Clearance 120 mL/min (70-130); Calcium 8.1 mg/dL (7.8-10.44); Carbon Dioxide 25 mmol/L (23-31); Chloride 95 mmol/L (98-107); Estimated GFR 106; Glucose 129 mg/dL (80-115); Magnesium 1.6 mg/dL (1.6-2.6); Potassium 4.2 mmol/L (3.5-5.1); Sodium 128 mmol/L (136-145)
[2022-05-06 06:44] LABS: Band 2 % (5-11); Hemoglobin 7.3 g/dL (12.0-16.0); Lymphocytes 47 % (21-51); MDiff Complete? YES; Mean Corpuscular HGB CONC 32.8 g/dL (32.0-36.0); Mean Corpuscular Hemoglobin 27.7 pg (27.0-31.0); Mean Corpuscular Volume 84.4 fL (78.0-98.0); Mean Platelet Volume 7.2 fL (7.4-10.4); Monocytes 15 % (0-10); Neutrophil 36 % (42-75); Platelet Count 91 thou/uL (130-400); Platelet Morphology Comment Appears Decreased; RBC Distribution Width 14.5 % (11.5-14.5); Red Blood Cell (RBC) Count 2.64 mill/uL (4.20-5.40); White Blood Cell (WBC) Count 3.3 thou/uL (4.8-10.8)
[2022-05-06] MEDS: Sodium Chloride 1 GM TAB PO SCH ×2 (09:40→12:32)
[2022-05-06] MEDS: Pantoprazole 40 MG VIAL IVP SCH (09:41)
[2022-05-06] MEDS ORDERED: Magnesium Sulfate In Water 4 GM in Premix Bag 1 BAG IVPB SCH (09:45)
[2022-05-06] MEDS: Benzonatate 100 MG CAP PO PRN (09:53)
[2022-05-06 14:11] VITALS: BP 120/78
[2022-05-06 14:34] VITALS: TEMP 98.2
== END 2022-05-06 15:36 | disposition home or self-care (01) | DRG 640 ==
LOC: ERS 12:01 → ERHOLD 15:43 → MSONC 18:23 → SURG A 20:58 → OBSVTOIN 05-02 11:12
PROVIDERS: ADMIT Internal Medicine; ATTEND Internal Medicine
PROC: 8E0ZXY6 Isolation (ICD-10-PCS; 2022-05-01)
PROC: 30233N1 Transfusion of Nonautologous Red Blood Cells into Peripheral Vein, Percutaneous Approach (ICD-10-PCS; principal; 2022-05-03)
DX: E86.0 Dehydration (principal); D61.810 Antineoplastic chemotherapy induced pancytopenia; U07.1 COVID-19; E43 Unspecified severe protein-calorie malnutrition; C79.51 Secondary malignant neoplasm of bone; C79.72 Secondary malignant neoplasm of left adrenal gland; C79.71 Secondary malignant neoplasm of right adrenal gland; R04.2 Hemoptysis; C34.92 Malignant neoplasm of unspecified part of left bronchus or lung; E87.1 Hypo-osmolality and hyponatremia; I10 Essential (primary) hypertension; K59.00 Constipation, unspecified; R11.0 Nausea; T45.1X5A Adverse effect of antineoplastic and immunosuppressive drugs, initial encounter; E11.9 Type 2 diabetes mellitus without complications; E78.5 Hyperlipidemia, unspecified; Z68.24 Body mass index [BMI] 24.0-24.9, adult; Z79.899 Other long term (current) drug therapy; Z79.01 Long term (current) use of anticoagulants; Z86.16 Personal history of COVID-19; Z86.711 Personal history of pulmonary embolism; Z90.11 Acquired absence of right breast and nipple; Z87.891 Personal history of nicotine dependence; Z85.3 Personal history of malignant neoplasm of breast; Z80.0 Family history of malignant neoplasm of digestive organs; Z83.6 Family history of other diseases of the respiratory system
CPT/HCPCS: 36415; 36416; 36430; 71045; 80048; 80053; 81003; 81015; 82550; 83605; 83690; 83735; 83880; 84443; 84484; 85025; 86850; 86900; 86901; 87040; 93005; 96374; 96375; 96376; C9113; G0378; J2405; J3475; J7050; J7120; P9016; Q0162; S0028; U0002